=== PATIENT | female | born 1945 | race Hispanic/Latino ===

== ENCOUNTER 2021-02-18 15:14 | Inpatient (IN) | payer MEDICARE, SELFPAY ==
[~2021-02-18 15:14] MED LIST: Iopamidol 370 76% 100 ML VIAL ONE
[2021-02-18] MEDS ORDERED: Succinylcholine 200 MG/10 ml SYRINGE FS ONE (15:37)
[2021-02-18] MEDS ORDERED: Rocuronium Bromide 10 MG/ML (10ML VIAL) ONE (15:37)
[2021-02-18] MEDS ORDERED: diphenhydrAMINE 50 MG/ML VIAL ONE (15:45)
[2021-02-18] MEDS ORDERED: Hydrocortisone Sod Succ/PF 100 mg/2 ml Vial ONE (15:45)
[2021-02-18] MEDS ORDERED: SUGAMMADEX SODIUM 200 MG/2 ML VIAL ONE (16:21)
[2021-02-18] MEDS ORDERED: Bisacodyl 10 MG SUPP PR PRN (16:23)
[2021-02-18] MEDS ORDERED: niCARdipine 25 MG in Sodium Chloride 0.9% 250 ML 240 ML IVPB PRN (16:23)
[2021-02-18] MEDS ORDERED: Milk Of Magnesia 30 ML UDCUP PO PRN (16:23)
[2021-02-18] MEDS ORDERED: levETIRAcetam in NS 1,000 MG in Premix Bag 1 BAG IVPB SCH (18:30)
[2021-02-18 18:31] LABS: #Basophils 0.1 thou/uL (0.0-0.2); #Lymphocytes 0.9 thou/uL (1.20-3.40); #Monocytes 0.2 thou/uL (0.11-0.59); #Neutrophils 9.7 thou/uL (1.40-6.50); %Basophils 0.7 % (0.0-1.0); %Eosinophils 0.2 % (0.0-10.0); %Monocytes 1.8 % (0.0-10.0); %Neutrophils 89.3 % (42.0-75.0); Hemoglobin 11.4 g/dL (12.0-16.0); Mean Corpuscular HGB CONC 33.8 g/dL (32.0-36.0); Mean Corpuscular Hemoglobin 31.9 pg (27.0-31.0); Mean Corpuscular Volume 94.4 fL (78.0-98.0); Mean Platelet Volume 9.8 fL (7.4-10.4); Platelet Count 153 thou/uL (130-400); RBC Distribution Width 13.3 % (11.5-14.5); Red Blood Cell (RBC) Count 3.57 mill/uL (4.20-5.40); White Blood Cell (WBC) Count 10.8 thou/uL (4.8-10.8)
[2021-02-18] MEDS: hydrALAZINE 20 MG/ML VIAL SLOW IVP PRN (18:40)
[2021-02-18 19:35] LABS: Anion Gap 14 mmol/L (10-20); BUN (Urea Nitrogen) 12 mg/dL (9.8-20.1); Calc. Creatinine Clearance 67 mL/min (70-130); Calcium 7.7 mg/dL (7.8-10.44); Carbon Dioxide 21 mmol/L (23-31); Chloride 109 mmol/L (98-107); Glucose 204 mg/dL (83-110); Potassium 3.6 mmol/L (3.5-5.1); Sodium 140 mmol/L (136-145)
[2021-02-18] MEDS ORDERED: Atorvastatin Calcium 40 MG TAB PO SCH (21:00)
[2021-02-18] MEDS ORDERED: Diltiazem HCl 125 MG, Admixture Fee 1 EACH in Sodium Chloride 0.9% 100 ML IVPB SCH (21:30)
[2021-02-18] MEDS: Sodium Chloride 0.9% 1,000 ML IV SCH (22:39)
[2021-02-19 04:12] LABS: Cardiac Risk 3.4 (Less than 4.5)
[2021-02-19] MEDS: levETIRAcetam in NS 500 MG in Premix Bag 1 BAG IVPB SCH ×2 (09:38→20:24)
[2021-02-19] MEDS: Nicotine 7 MG PATCH TD SCH (13:14)
[2021-02-19] MEDS: Sodium Chloride 0.9% 1,000 ML IV SCH (13:14)
[2021-02-19] MEDS: Labetalol HCl 100 MG/20 ML VIAL SLOW IVP PRN ×3 (18:35→21:18)
[2021-02-19] MEDS: Atorvastatin Calcium 40 MG TAB PO SCH ×2 (20:25→20:36)
[2021-02-19] MEDS: Acetaminophen 325 MG TAB PO PRN (20:35)
[2021-02-20] MEDS: Sodium Chloride 0.9% 1,000 ML IV SCH ×3 (01:17→21:05)
[2021-02-20] MEDS: hydrALAZINE 20 MG/ML VIAL SLOW IVP PRN ×3 (01:18→23:41)
[2021-02-20] MEDS: Labetalol HCl 100 MG/20 ML VIAL SLOW IVP PRN ×3 (02:04→21:03)
[2021-02-20] MEDS: Acetaminophen 325 MG TAB PO PRN (03:51)
[2021-02-20 05:23] LABS: Anion Gap 11 mmol/L (10-20); BUN (Urea Nitrogen) 9 mg/dL (9.8-20.1); Calc. Creatinine Clearance 65 mL/min (70-130); Carbon Dioxide 21 mmol/L (23-31); Chloride 112 mmol/L (98-107); Glucose 194 mg/dL (83-110); Magnesium 1.6 mg/dL (1.6-2.6); Potassium 3.3 mmol/L (3.5-5.1); Sodium 141 mmol/L (136-145)
[2021-02-20] MEDS ORDERED: Magnesium 2 GM/50 ML 2 GM in Premix Bag 1 BAG IVPB SCH (05:45)
[2021-02-20] MEDS ORDERED: Potassium Chloride 40 MEQ in Sodium Chloride 0.9% 250 ML 250 ML IVPB SCH (06:00)
[2021-02-20 06:10] LABS: #Lymphocytes 1.4 thou/uL (1.20-3.40); #Monocytes 0.6 thou/uL (0.11-0.59); %Basophils 0.2 % (0.0-1.0); %Eosinophils 0.4 % (0.0-10.0); %Monocytes 6.1 % (0.0-10.0); %Neutrophils 77.4 % (42.0-75.0); Hemoglobin 10.8 g/dL (12.0-16.0); Mean Corpuscular HGB CONC 33.4 g/dL (32.0-36.0); Mean Corpuscular Hemoglobin 31.3 pg (27.0-31.0); Mean Corpuscular Volume 93.8 fL (78.0-98.0); Mean Platelet Volume 9.7 fL (7.4-10.4); Platelet Count 152 thou/uL (130-400); RBC Distribution Width 13.6 % (11.5-14.5); Red Blood Cell (RBC) Count 3.46 mill/uL (4.20-5.40)
[2021-02-20 06:33] LABS: Lactic Acid 2.1 mmol/L (0.5-2.2)
[2021-02-20 06:50] LABS: Bacteria/HPF None Seen HPF (None Seen); Bilirubin Negative (Negative); Blood, Urine Negative (Negative); Clarity Clear (Clear); Glucose, Urine (Dipstick) 150 mg/dL (Negative); Ketone, Urine Negative (Negative); Leukocyte Negative Leu/uL (Negative); Nitrite Negative (Negative); Protein, Urine (Dipstick) Negative (Neg-Trace); RBC/HPF 0-3 HPF (0-3); Specific Gravity, Urine 1.008 (1.002-1.036); Squamous Epithelial None Seen HPF (0-3); Urobilinogen Normal mg/dL (Less than 2); WBC/HPF 0-3 HPF (0-3)
[2021-02-20 07:01] LABS: Urine Culture Reflex No No
[2021-02-20] MEDS: levETIRAcetam in NS 500 MG in Premix Bag 1 BAG IVPB SCH ×2 (09:52→21:05)
[2021-02-20] MEDS: Nicotine 7 MG PATCH TD SCH (13:23)
[2021-02-20] MEDS ORDERED: Apixaban 5 MG TAB PO SCH (21:00)
[2021-02-20] MEDS: Atorvastatin Calcium 40 MG TAB PO SCH (21:05)
[2021-02-21 04:32] LABS: #Lymphocytes 1.7 thou/uL (1.20-3.40); #Monocytes 0.6 thou/uL (0.11-0.59); #Neutrophils 7.4 thou/uL (1.40-6.50); %Basophils 0.1 % (0.0-1.0); %Eosinophils 0.3 % (0.0-10.0); %Lymphocytes 17.2 % (21.0-51.0); %Monocytes 6.5 % (0.0-10.0); Hemoglobin 11.5 g/dL (12.0-16.0); Mean Corpuscular HGB CONC 33.7 g/dL (32.0-36.0); Mean Corpuscular Hemoglobin 31.7 pg (27.0-31.0); Mean Corpuscular Volume 94.2 fL (78.0-98.0); Mean Platelet Volume 9.8 fL (7.4-10.4); Platelet Count 152 thou/uL (130-400); RBC Distribution Width 13.6 % (11.5-14.5); Red Blood Cell (RBC) Count 3.63 mill/uL (4.20-5.40); White Blood Cell (WBC) Count 9.8 thou/uL (4.8-10.8)
[2021-02-21 04:50] LABS: Anion Gap 14 mmol/L (10-20); BUN (Urea Nitrogen) 10 mg/dL (9.8-20.1); Calc. Creatinine Clearance 72 mL/min (70-130); Carbon Dioxide 19 mmol/L (23-31); Chloride 113 mmol/L (98-107); Glucose 188 mg/dL (83-110); Sodium 142 mmol/L (136-145)
[2021-02-21] MEDS: levETIRAcetam in NS 500 MG in Premix Bag 1 BAG IVPB SCH ×2 (09:55→22:30)
[2021-02-21] MEDS ORDERED: Diltiazem 125 MG in Sodium Chloride 0.9% 100 ML IVPB SCH (10:15)
[2021-02-21] MEDS ORDERED: Metoprolol Tartrate 5 MG/5 ML VIAL ONE (11:22)
[2021-02-21] MEDS: Sodium Chloride 0.9% 1,000 ML IV SCH (11:27)
[2021-02-21] MEDS: Nicotine 7 MG PATCH TD SCH (15:12)
[2021-02-21] MEDS: Acetaminophen 325 MG TAB PO PRN (17:57)
[2021-02-21] MEDS: Atorvastatin Calcium 40 MG TAB PO SCH (22:30)
[2021-02-22] MEDS: Sodium Chloride 0.9% 1,000 ML IV SCH (06:32)
[2021-02-22] MEDS: levETIRAcetam in NS 500 MG in Premix Bag 1 BAG IVPB SCH ×2 (07:37→20:40)
[2021-02-22] MEDS ORDERED: Metoprolol Tartrate 25 MG TAB PO SCH (10:15)
[2021-02-22] MEDS: Metoprolol Tartrate 25 MG TAB PO SCH ×2 (11:27→20:39)
[2021-02-22] MEDS: Losartan 25 MG TAB PO SCH (11:27)
[2021-02-22] MEDS: Nicotine 7 MG PATCH TD SCH (13:07)
[2021-02-22] MEDS: Acetaminophen 325 MG TAB PO PRN (20:39)
[2021-02-22] MEDS: Atorvastatin Calcium 40 MG TAB PO SCH (20:39)
[2021-02-22] MEDS: Apixaban 5 MG TAB PO SCH (20:40)
[2021-02-23] MEDS: hydrALAZINE 20 MG/ML VIAL SLOW IVP PRN (01:22)
[2021-02-23] MEDS: Sodium Chloride 0.9% 1,000 ML IV SCH (01:35)
[2021-02-23] MEDS: Acetaminophen 325 MG TAB PO PRN ×4 (03:34→23:10)
[2021-02-23] MEDS: levETIRAcetam in NS 500 MG in Premix Bag 1 BAG IVPB SCH ×2 (07:28→21:19)
[2021-02-23] MEDS: Apixaban 5 MG TAB PO SCH ×2 (07:30→21:20)
[2021-02-23] MEDS: Metoprolol Tartrate 25 MG TAB PO SCH ×2 (07:30→21:20)
[2021-02-23] MEDS: Losartan 25 MG TAB PO SCH (07:30)
[2021-02-23] MEDS: Nicotine 7 MG PATCH TD SCH (10:28)
[2021-02-23] MEDS ORDERED: Losartan 25 MG TAB PO SCH (13:00)
[2021-02-23] MEDS: Atorvastatin Calcium 40 MG TAB PO SCH (21:44)
[2021-02-24] MEDS: Sodium Chloride 0.9% 1,000 ML IV SCH ×2 (04:03→16:40)
[2021-02-24] MEDS: levETIRAcetam in NS 500 MG in Premix Bag 1 BAG IVPB SCH ×2 (08:35→20:19)
[2021-02-24] MEDS: Apixaban 5 MG TAB PO SCH ×2 (08:35→20:20)
[2021-02-24] MEDS ORDERED: Losartan 25 MG TAB PO SCH ×3 (09:00→16:30)
[2021-02-24] MEDS: Losartan 25 MG TAB PO SCH (09:00)
[2021-02-24] MEDS: Metoprolol Tartrate 25 MG TAB PO SCH ×2 (09:13→22:02)
[2021-02-24 13:41] VITALS: BMI 26.6
[2021-02-24] MEDS: Nicotine 7 MG PATCH TD SCH (14:00)
[2021-02-24] MEDS: Acetaminophen 325 MG TAB PO PRN ×2 (14:40→20:19)
[2021-02-24] MEDS: Atorvastatin Calcium 40 MG TAB PO SCH (20:20)
[2021-02-25 01:27] LABS: Troponin I 0.305 ng/mL (< 0.028)
[2021-02-25] MEDS: Acetaminophen 325 MG TAB PO PRN ×3 (02:53→21:36)
[2021-02-25] MEDS: Sodium Chloride 0.9% 1,000 ML IV SCH (02:54)
[2021-02-25 05:01] LABS: Troponin I 0.266 ng/mL (< 0.028)
[2021-02-25 09:09] LABS: Troponin I 0.232 ng/mL (< 0.028)
[2021-02-25] MEDS ORDERED: hydrALAZINE 25 MG TAB PO SCH (09:20)
[2021-02-25] MEDS: levETIRAcetam in NS 500 MG in Premix Bag 1 BAG IVPB SCH (10:01)
[2021-02-25] MEDS: Metoprolol Tartrate 25 MG TAB PO SCH ×2 (10:03→21:35)
[2021-02-25] MEDS: Apixaban 5 MG TAB PO SCH ×2 (10:03→21:36)
[2021-02-25] MEDS: Losartan 25 MG TAB PO SCH (10:03)
[2021-02-25] MEDS: Nicotine 7 MG PATCH TD SCH (12:46)
[2021-02-25 13:15] LABS: #Basophils 0.1 thou/uL (0.0-0.2); #Eosinphils 0.2 thou/uL (0.0-0.7); #Lymphocytes 1.3 thou/uL (1.20-3.40); #Monocytes 0.5 thou/uL (0.11-0.59); %Eosinophils 2.7 % (0.0-10.0); %Lymphocytes 18.1 % (21.0-51.0); %Monocytes 7.4 % (0.0-10.0); %Neutrophils 70.8 % (42.0-75.0); Hemoglobin 11.3 g/dL (12.0-16.0); Mean Corpuscular HGB CONC 33.7 g/dL (32.0-36.0); Mean Corpuscular Hemoglobin 31.9 pg (27.0-31.0); Mean Corpuscular Volume 94.5 fL (78.0-98.0); Mean Platelet Volume 10.6 fL (7.4-10.4); Platelet Count 192 thou/uL (130-400); Red Blood Cell (RBC) Count 3.56 mill/uL (4.20-5.40)
[2021-02-25 13:34] LABS: Anion Gap 14 mmol/L (10-20); BUN (Urea Nitrogen) 7 mg/dL (9.8-20.1); Calc. Creatinine Clearance 84 mL/min (70-130); Carbon Dioxide 24 mmol/L (23-31); Chloride 108 mmol/L (98-107); Glucose 187 mg/dL (83-110); Potassium 3.5 mmol/L (3.5-5.1); Sodium 142 mmol/L (136-145)
[2021-02-25] MEDS: hydrALAZINE 25 MG TAB PO SCH ×2 (14:33→21:36)
[2021-02-25] MEDS: Atorvastatin Calcium 40 MG TAB PO SCH (21:36)
[2021-02-26] MEDS: diphenhydrAMINE 25 MG CAP PO PRN ×3 (00:05→21:54)
[2021-02-26] MEDS: hydrALAZINE 20 MG/ML VIAL SLOW IVP PRN (03:29)
[2021-02-26 05:45] LABS: #Eosinphils 0.2 thou/uL (0.0-0.7); #Lymphocytes 1.7 thou/uL (1.20-3.40); #Monocytes 0.6 thou/uL (0.11-0.59); #Neutrophils 3.9 thou/uL (1.40-6.50); %Basophils 0.6 % (0.0-1.0); %Eosinophils 3.2 % (0.0-10.0); %Lymphocytes 26.2 % (21.0-51.0); %Monocytes 9.2 % (0.0-10.0); %Neutrophils 60.8 % (42.0-75.0); Mean Corpuscular HGB CONC 32.6 g/dL (32.0-36.0); Mean Corpuscular Hemoglobin 30.8 pg (27.0-31.0); Mean Corpuscular Volume 94.4 fL (78.0-98.0); Mean Platelet Volume 10.2 fL (7.4-10.4); Platelet Count 219 thou/uL (130-400); Red Blood Cell (RBC) Count 3.91 mill/uL (4.20-5.40); White Blood Cell (WBC) Count 6.5 thou/uL (4.8-10.8)
[2021-02-26 06:06] LABS: Anion Gap 12 mmol/L (10-20); BUN (Urea Nitrogen) 7 mg/dL (9.8-20.1); Calc. Creatinine Clearance 75 mL/min (70-130); Calcium 8.6 mg/dL (7.8-10.44); Carbon Dioxide 26 mmol/L (23-31); Chloride 107 mmol/L (98-107); Glucose 154 mg/dL (83-110); Potassium 3.6 mmol/L (3.5-5.1); Sodium 141 mmol/L (136-145)
[2021-02-26] MEDS: Metoprolol Tartrate 25 MG TAB PO SCH ×2 (10:08→21:48)
[2021-02-26] MEDS: Apixaban 5 MG TAB PO SCH ×2 (10:09→21:47)
[2021-02-26] MEDS: Losartan 25 MG TAB PO SCH (10:09)
[2021-02-26] MEDS: hydrALAZINE 25 MG TAB PO SCH ×4 (10:29→21:48)
[2021-02-26] MEDS: Nicotine 7 MG PATCH TD SCH (15:17)
[2021-02-26] MEDS: Acetaminophen 325 MG TAB PO PRN (18:12)
[2021-02-26] MEDS: Atorvastatin Calcium 40 MG TAB PO SCH (21:47)
[2021-02-27] MEDS: hydrALAZINE 20 MG/ML VIAL SLOW IVP PRN ×2 (04:53→16:31)
[2021-02-27] MEDS: Metoprolol Tartrate 25 MG TAB PO SCH (08:34)
[2021-02-27] MEDS: Apixaban 5 MG TAB PO SCH (08:34)
[2021-02-27] MEDS: Losartan 25 MG TAB PO SCH (08:35)
[2021-02-27] MEDS: Acetaminophen 325 MG TAB PO PRN ×2 (08:35→18:36)
[2021-02-27] MEDS: hydrALAZINE 25 MG TAB PO SCH ×2 (08:35→14:13)
[2021-02-27] MEDS: Nicotine 7 MG PATCH TD SCH (11:20)
[2021-02-27] MEDS: diphenhydrAMINE 25 MG CAP PO PRN ×2 (14:15→19:37)
[2021-02-27 15:42] VITALS: BP 196/91; TEMP 98.4
[2021-02-28] MEDS ORDERED: Losartan 25 MG TAB PO SCH (09:00)
== END 2021-02-27 20:05 | DRG 23 ==
LOC: ERS 15:14 → CCL 15:55 → CCU 16:00 → IMCU/EMU 02-19 14:55 → 3SE 02-23 09:57
PROVIDERS: ADMIT Neurological Surgery; ATTEND Internal Medicine
PROC: 03CG3ZZ Extirpation of Matter from Intracranial Artery, Percutaneous Approach (ICD-10-PCS; principal; 2021-02-18)
PROC: B31R1ZZ Fluoroscopy of Intracranial Arteries using Low Osmolar Contrast (ICD-10-PCS; 2021-02-18)
DX: I63.311 Cerebral infarction due to thrombosis of right middle cerebral artery (principal); G93.5 Compression of brain; G81.94 Hemiplegia, unspecified affecting left nondominant side; R29.720 NIHSS score 20; I48.91 Unspecified atrial fibrillation; F17.210 Nicotine dependence, cigarettes, uncomplicated; R13.12 Dysphagia, oropharyngeal phase; I08.1 Rheumatic disorders of both mitral and tricuspid valves; R00.1 Bradycardia, unspecified; Z88.5 Allergy status to narcotic agent; Z88.0 Allergy status to penicillin; Z90.710 Acquired absence of both cervix and uterus; Z83.3 Family history of diabetes mellitus; Z71.6 Tobacco abuse counseling; Z79.899 Other long term (current) drug therapy
CPT/HCPCS: 36216; 36224; 36415; 37185; 70450; 70551; 71045; 74230; 80048; 80061; 81001; 83605; 83735; 84145; 84484; 85025; 87040; 93005; 93010; 93306; C1887; J0360; J1200; J1720; J1953; J3475; J3480; J3490; J7050; Q9967